=== PATIENT | female | born 1955 | race Native Hawaiian/Other Pacific Islander ===

== ENCOUNTER 2016-11-07 16:10 | Inpatient (IN) ==
--- NOTE | 2016-11-07 16:20 | Emergency Department Note ---
Disposition Clinical Impression: Sepsis, UTI (urinary tract infection) Disposition: Admitted As Inpatient Condition: Good General Adult HPI - General Chief complaint: ED Fever Stated complaint: poss sepsis Time Seen by Provider: 11/07/16 16:14 - Related Data Home Medications Medication Instructions Recorded Confirmed Albuterol Neb [Proventil Neb] 2.5 mg IH QID PRN 03/13/16 11/07/16 Albuterol Sulfate [Albuterol 2 puff IH Q4H PRN 03/13/16 11/07/16 Inhaler] Dextrose [Glucose] 16 gm PO PRN PRN 03/13/16 11/07/16 Insulin ASPART [Novolog Flexpen] 12 unit SQ BIDWM MDD Breakfast & 03/13/1611/07 Lunch Insulin ASPART [Novolog Flexpen] 18 unit SQ QPM MDD Dinner 03/13/16 11/07/16 Insulin Glargine [Lantus] 50 unit SQ DAILY 03/13/16 11/07/16 Isosorbide MONOnitrate (24 HR) 60 mg PO DAILY 03/13/16 11/07/16 [Imdur] Metformin HCl [Glucophage] 1,000 mg PO BID 03/13/16 11/07/16 Metoprolol XL (24 HR) Succ [Toprol 125 mg PO DAILY 03/13/16 11/07/16 Xl] Nitroglycerin [Nitrostat] 0.4 mg SL Q5M PRN 03/13/16 11/07/16 Omeprazole [PriLOSEC] 20 mg PO DAILY 03/13/16 11/07/16 Propylene Glycol/Peg 400 [Systane 1 drop BOTH EYES QID 03/13/16 11/07/16 0.3-0.4% Eye Drops] Triamcinolone Acet 0.1% CRM 1 appl TP BID PRN 03/13/16 11/07/16 [Kenalog] Trospium Chloride 20 mg PO DAILY 03/13/16 11/07/16 Aspirin [Lo-Dose Aspirin EC] 81 mg PO DAILY 03/14/16 11/07/16 Baclofen [Lioresal] 10 mg PO TID 03/14/16 11/07/16 Folic Acid 1 mg PO DAILY 03/14/16 11/07/16 Furosemide [Lasix] 40 mg PO DAILY PRN 03/14/16 11/07/16 Pregabalin [Lyrica] 300 mg PO BID 03/14/16 11/07/16 Quetiapine Fumarate [Seroquel] 200 mg PO HS 03/14/16 11/07/16 Tiotropium [Spiriva] 1 cap IH DAILY 03/14/16 11/07/16 Trazodone HCl 200 mg PO BID 03/14/16 11/07/16 Venlafaxine HCl [Venlafaxine HCl 150 mg PO DAILY 03/14/16 11/07/16 ER] Budesonide/Formoterol 160/4.5 2 puff IH BIDR 11/07/16 11/07/16 [Symbicort 160/4.5] Cyanocobalamin (Vitamin B-12) 1,000 mcg PO DAILY 11/07/16 11/07/16 [Vitamin B12] Saxagliptin HCl [Onglyza] 5 mg PO DAILY 11/07/16 11/07/16 Previous Rx's Medication Instructions Recorded HYDROcodone/Acet 5/325 mg [[place] 1 tab PO Q8HR PRN #20 tablet 03/14/16 5-325 mg] Allergies Allergy/AdvReac Type Severity Reaction Status Date / Time NSAIDS (Non-Steroidal Allergy Unknown See Verified 11/07/16 22:47 Anti-Inflamma Comments atorvastatin AdvReac See Verified 03/13/16 16:57 Comments gemfibrozil AdvReac See Verified 03/13/16 16:57 Comments Sulfa (Sulfonamide AdvReac Vomiting Verified 03/13/16 16:57 Antibiotics) Past Medical History - Past Medical History Medical history: Reports: COPD, diabetes, GERD, hyperlipidemia, hypertension, myocardial infarction, other Surgical history: Reports: cholecystectomy, coronary bypass (CABG) (2013 in [facility] ), tracheostomy Psychiatric history: Reports: anxiety, depression [employer] history: Reports: ectopic - Social History Smoking Status: Current every day smoker Alcohol use: Reports: none Drug use: Reports: none Course Vital Signs Temperature 102.1 F H 11/07/16 16:12 Pulse Rate 93 11/07/16 16:12 Respiratory Rate 24 11/07/16 16:12 Blood Pressure 119/61 11/07/16 16:12 O2 Sat by Pulse Oximetry 100 11/07/16 16:12 Temperature 98.6 F 11/08/16 03:19 Pulse Rate 78 11/08/16 03:19 Respiratory Rate 20 11/08/16 04:11 Blood Pressure 99/53 11/08/16 03:19 O2 Sat by Pulse Oximetry 96 11/08/16 04:11 Oxygen Delivery Oxygen Delivery Trach Mask Medical Decision Making - Lab Data Result diagrams: 11/07/16 16:41 11/08/16 00:25 Lab Results 11/07/16 11/07/16 11/07/16 Range/Units 16:41 16:41 16:41 WBC 12.9 H (4.3-11.1) K/mcL RBC 3.99 (3.82-4.97) M/mcL Hgb 10.3 L (11.5-15.4) g/dL Hct 35.5 (35.3-44.9) % MCV 89.0 (83.0-100.0) fL MCH 25.8 L (28.0-33.3) pg MCHC 29.0 L (31.6-35.5) g/dL RDW 26.0 H (11.5-14.5) % Plt Count 201 (140-400) K/mcL MPV 11.4 (9.4-12.4) fL Immature Gran % 0.6 (0-4) % Seg Neutrophils % 92.7 % Lymphocytes % 2.1 % Monocytes % 4.3 % Eosinophils % 0.2 % Basophils % 0.1 % Neutrophils # 12.0 H (1.6-8.9) K/mcL Lymphocytes # 0.3 L (0.6-4.6) K/mcL Monocytes # 0.6 (0.0-1.3) K/mcL Eosinophils # 0.0 (0.0-0.6) K/mcL Basophils # 0.0 (0.0-0.2) K/mcL Nucleated RBCs/100 WBC 0.2 H (0) /100 WBC Platelet Estimate Normal (Normal) Polychromasia 1+ A (Not Present) Hypochromasia Present A (Not Present) Sodium 137 (136-145) mEq/L Potassium 4.2 (3.5-4.5) mEq/L Chloride 105 (98-109) mEq/L Carbon Dioxide 22 (19-29) mEq/L BUN 24 H (7-20) mg/dL Creatinine 1.31 H (0.57-1.11) mg/dL Est GFR ( Amer) 50 L (> 60) Est GFR (Non-Af Amer) 41 L (> 60) BUN/Creatinine Ratio 18 (6-26) Glucose 335 H (70-99) mg/dL Calculated Osmolality 301 H (280-300) Lactic Acid (0.5-2.2) mmol/L Calcium 8.5 L (8.6-10.8) mg/dL Phosphorus 3.0 (2.3-4.7) mg/dL Magnesium 1.7 (1.6-2.6) mg/dL Total Bilirubin 0.5 (0.2-1.2) mg/dL Direct Bilirubin 0.3 (0.0-0.5) mg/dL Indirect Bilirubin 0.2 (0.0-1.2) mg/dL AST 14 (5-34) Units/L ALT 28 (0-55) Units/L Alkaline Phosphatase 128 H (38-126) Units/L Troponin I 0.00 (0-0.03) ng/mL Serum Total Protein 6.9 (6.0-8.3) g/dL Albumin 3.1 L (3.5-5.0) g/dL Globulin 3.8 H (2.4-3.5) g/dL Albumin/Globulin Ratio 0.8 L (1.1-2.2) Urine Color (Yellow) Urine Clarity (Clear) Urine pH (5.0-8.0) pH Units Ur Specific [place] (1.010-1.025) Urine Protein (Neg-Trace) mg/dL Urine Glucose (UA) (Normal) mg/dL Urine Ketones (Negative) mg/dL Urine Blood (Negative) Urine Nitrite (Negative) Urine Bilirubin (Negative) Urine Urobilinogen (Normal) mg/dL Ur Leukocyte Esterase (Negative) Urine Microscopic RBC (0-3) per hpf Urine Microscopic WBC (0-3) per hpf Ur Squamous Epith Cells (None-Few) per lpf Urine Bacteria (None-Few) per hpf Hyaline Casts (None-Few) per lpf Ur Culture Indicated? (NO) 11/07/16 11/07/16 Range/Units 16:47 16:49 WBC (4.3-11.1) K/mcL RBC (3.82-4.97) M/mcL Hgb (11.5-15.4) g/dL Hct (35.3-44.9) % MCV (83.0-100.0) fL MCH (28.0-33.3) pg MCHC (31.6-35.5) g/dL RDW (11.5-14.5) % Plt Count (140-400) K/mcL MPV (9.4-12.4) fL Immature Gran % (0-4) % Seg Neutrophils % % Lymphocytes % % Monocytes % % Eosinophils % % Basophils % % Neutrophils # (1.6-8.9) K/mcL Lymphocytes # (0.6-4.6) K/mcL Monocytes # (0.0-1.3) K/mcL Eosinophils # (0.0-0.6) K/mcL Basophils # (0.0-0.2) K/mcL Nucleated RBCs/100 WBC (0) /100 WBC Platelet Estimate (Normal) Polychromasia (Not Present) Hypochromasia (Not Present) Sodium (136-145) mEq/L Potassium (3.5-4.5) mEq/L Chloride (98-109) mEq/L Carbon Dioxide (19-29) mEq/L BUN (7-20) mg/dL Creatinine (0.57-1.11) mg/dL Est GFR ( Amer) (> 60) Est GFR (Non-Af Amer) (> 60) BUN/Creatinine Ratio (6-26) Glucose (70-99) mg/dL Calculated Osmolality (280-300) Lactic Acid 2.0 (0.5-2.2) mmol/L Calcium (8.6-10.8) mg/dL Phosphorus (2.3-4.7) mg/dL Magnesium (1.6-2.6) mg/dL Total Bilirubin (0.2-1.2) mg/dL Direct Bilirubin (0.0-0.5) mg/dL Indirect Bilirubin (0.0-1.2) mg/dL AST (5-34) Units/L ALT (0-55) Units/L Alkaline Phosphatase (38-126) Units/L Troponin I (0-0.03) ng/mL Serum Total Protein (6.0-8.3) g/dL Albumin (3.5-5.0) g/dL Globulin (2.4-3.5) g/dL Albumin/Globulin Ratio (1.1-2.2) Urine Color Yellow (Yellow) Urine Clarity Cloudy A (Clear) Urine pH 5.5 (5.0-8.0) pH Units Ur Specific [place] 1.023 (1.010-1.025) Urine Protein 30 H (Neg-Trace) mg/dL Urine Glucose (UA) 500 H (Normal) mg/dL Urine Ketones Negative (Negative) mg/dL Urine Blood Trace H (Negative) Urine Nitrite Positive A (Negative) Urine Bilirubin Negative (Negative) Urine Urobilinogen Normal (Normal) mg/dL Ur Leukocyte Esterase Moderate H (Negative) Urine Microscopic RBC 3-5 H (0-3) per hpf Urine Microscopic WBC 15-30 H (0-3) per hpf Ur Squamous Epith Cells Many H (None-Few) per lpf Urine Bacteria Moderate H (None-Few) per hpf Hyaline Casts Few (None-Few) per lpf Ur Culture Indicated? YES A (NO) Critical Care Time Critical Care Time: Yes Total Critical Care Time: 45 Attestation: Patient presented with hypotension, fever, confusion. She meets criteria for sepsis. UTI the likely culprit. Admitted Attestation Statement - Attestation Attestation: I examined this patient and my medical decision-making was reviewed with the Resident Physician. I agree with the documented findings, disposition and treatment plan as described except to the extent set forth below. [id number] time provided Patient is sent from the [facility] urgent care with concern for sepsis due to confusion , hypotension, fever. Patient has a tracheostomy which is chronic. She is a poor historian. I have reviewed her medication list. We will request the laboratory investigation from the [facility] as it was not initially sent with the patient 17:13: IV fluids not given at 30 mL per KG due to IV fluids are started at the [facility] and the patient is not hypotensive now
[2016-11-07] MEDS ORDERED: Ipratropium/Albuterol Neb 3 ML IH ONE ×2 (16:21→20:32)
[2016-11-07 16:51] LABS: Basophils % 0.1 %; Eosinophils % 0.2 %; Hematocrit 35.5 % (35.3-44.9); Hemoglobin 10.3 g/dL (11.5-15.4); Immature Granulocytes % 0.6 % (0-4); Lymphocytes # 0.3 K/mcL (0.6-4.6); Lymphocytes % 2.1 %; Mean Corpuscular Hemoglobin 25.8 pg (28.0-33.3); Mean Platelet Volume 11.4 fL (9.4-12.4); Monocytes # 0.6 K/mcL (0.0-1.3); Monocytes % 4.3 %; Nucleated Red Blood Cells 0.2 /100 WBC (0); Platelet Count 201 K/mcL (140-400); Red Blood Count 3.99 M/mcL (3.82-4.97); Segmented Neutrophils % 92.7 %
[2016-11-07] MEDS: 0.9 % Sodium Chloride 1,000 ML IVC SCH ×3 (16:53→20:26)
[2016-11-07 16:59] LABS: Bilirubin,Urine Negative (Negative); Blood,Urine Trace (Negative); Clarity,Urine Cloudy (Clear); Color,Urine Yellow (Yellow); Glucose,Urine (UA) 500 mg/dL (Normal); Ketones,Urine Negative (Negative); Leukocyte Esterase,Urine Moderate (Negative); Nitrite,Urine Positive (Negative); PH,Urine 5.5 pH Units (5.0-8.0); Protein,Urine 30 mg/dL (Neg-Trace); Specific Gravity,Urine 1.023 (1.010-1.025); Urobilinogen,Urine Normal (Normal)
[2016-11-07 17:00] LABS: Bacteria,Urine Moderate per hpf (None-Few); Hyaline Casts,Urine Few per lpf (None-Few); Squamous Epithelial Cell,Urine Many per lpf (None-Few); WBC,Urine 15-30 per hpf (0-3)
[2016-11-07 17:04] LABS: Albumin 3.1 g/dL (3.5-5.0); Albumin/Globulin Ratio 0.8 (1.1-2.2); Bilirubin,Direct 0.3 mg/dL (0.0-0.5); Bilirubin,Indirect 0.2 mg/dL (0.0-1.2); Bilirubin,Total 0.5 mg/dL (0.2-1.2); Calcium 8.5 mg/dL (8.6-10.8); Globulin 3.8 g/dL (2.4-3.5); Magnesium 1.7 mg/dL (1.6-2.6); Potassium 4.2 mEq/L (3.5-4.5); Total Protein 6.9 g/dL (6.0-8.3)
--- NOTE | 2016-11-07 17:07 | Emergency Department Note ---
Disposition Clinical Impression: Sepsis Qualifiers: Sepsis type: sepsis due to unspecified organism Qualified Code(s): A41.9 - Sepsis, unspecified organism UTI (urinary tract infection) Qualifiers: Urinary tract infection type: acute cystitis Hematuria presence: without hematuria Qualified Code(s): N30.00 - Acute cystitis without hematuria Disposition: Admitted As Inpatient Condition: Good [facility]errals: [facility] [Non-Partnered Physician] - Forms: ED Satisfaction Letter Time of Disposition: 18:02 Abdominal Pain HPI - General Chief Complaint: ED Abdominal Pain Stated Complaint: poss sepsis Time Seen by Provider: 11/07/16 16:14 Nursing Notes Reviewed: Yes Vital Signs Reviewed: Yes - History of Present Illness HPI Narrative: Patient sent from the [place] for hypotension and tachycardia as well as altered mental status, possible sepsis. She is a trach patient there. They have [place] the patient on Zosyn. They did a chest x-ray and basic lab workup. Her chest x-ray was normal. They have also started her on 1 L of fluids. Pain Scale: 8 - Related Data Home Medications Medication Instructions Recorded Confirmed Albuterol Neb [Proventil Neb] 2.5 mg IH QID PRN 03/13/16 03/13/16 Albuterol Sulfate [Albuterol 2 puff IH Q4H PRN 03/13/16 03/13/16 Inhaler] Dextrose [Glucose] 16 gm PO PRN PRN 03/13/16 03/13/16 Insulin ASPART [Novolog Flexpen] 12 unit SQ BIDWM MDD Breakfast & 03/13/1603/13 Lunch Insulin ASPART [Novolog Flexpen] 18 unit SQ QPM MDD Dinner 03/13/16 03/13/16 Insulin Glargine [Lantus] 50 unit SQ DAILY 03/13/16 03/13/16 Isosorbide MONOnitrate (24 HR) 60 mg PO DAILY 03/13/16 03/13/16 [Imdur] Metformin HCl [Glucophage] 1,000 mg PO BID 03/13/16 03/13/16 Metoprolol XL (24 HR) Succ [Toprol 125 mg PO DAILY 03/13/16 03/13/16 Xl] Nitroglycerin [Nitrostat] 0.4 mg SL Q5M PRN 03/13/16 03/13/16 Omeprazole [PriLOSEC] 20 mg PO DAILY 03/13/16 03/13/16 Propylene Glycol/Peg 400 [Systane 1 drop BOTH EYES QID 03/13/16 03/13/16 0.3-0.4% Eye Drops] Triamcinolone Acet 0.1% CRM 1 appl TP BID PRN 03/13/16 03/13/16 [Kenalog] Trospium Chloride 20 mg PO DAILY 03/13/16 03/13/16 Aspirin [Lo-Dose Aspirin EC] 81 mg PO DAILY 03/14/16 03/14/16 Baclofen [Lioresal] 10 mg PO TID 03/14/16 03/14/16 Folic Acid 1 mg PO DAILY 03/14/16 03/14/16 Furosemide [Lasix] 40 mg PO DAILY PRN 03/14/16 03/14/16 Pregabalin [Lyrica] 300 mg PO BID 03/14/16 03/14/16 Quetiapine Fumarate [Seroquel] 200 mg PO HS 03/14/16 03/14/16 Tiotropium [Spiriva] 18 mcg IH DAILY 03/14/16 03/14/16 Trazodone HCl 100 mg PO HS 03/14/16 03/14/16 Trospium Chloride 20 mg PO DAILY 03/14/16 03/14/16 Venlafaxine HCl [Venlafaxine HCl 150 mg PO DAILY 03/14/16 03/14/16 ER] Previous Rx's Medication Instructions Recorded HYDROcodone/Acet 5/325 mg [[place] 1 tab PO Q8HR PRN #20 tablet 03/14/16 5-325 mg] Allergies Allergy/AdvReac Type Severity Reaction Status Date / Time atorvastatin AdvReac See Verified 03/13/16 16:57 Comments gemfibrozil AdvReac See Verified 03/13/16 16:57 Comments Sulfa (Sulfonamide AdvReac Vomiting Verified 03/13/16 16:57 Antibiotics) Limitations: ROS unobtainable due to patients medical condition Abdominal Pain PMH - Past Medical History Medical history: Reports: COPD, diabetes, GERD, hyperlipidemia, hypertension, myocardial infarction, other Female Surgical History: Reports: coronary bypass (CABG), other [employer] history: Reports: ectopic Psychiatric history: Reports: anxiety, depression - Social History Smoking status: Current every day smoker Alcohol use: Reports: none Drug use: Reports: none Physical Exam - General General appearance: alert, in no apparent distress, other (Confused. Has a foul urine odor about her.) - Head Head exam: atraumatic, normocephalic, normal inspection - Eye Eye exam: Present: normal appearance, PERRL, EOMI. Absent: scleral icterus - ENT ENT exam: normal exam, normal oropharynx, mucous membranes moist - Neck Neck exam: Present: normal inspection, full ROM, trachea midline, other (Trach present.). Absent: tenderness, lymphadenopathy - Chest Chest inspection: Present: normal inspection, symmetric chest wall rise - Respiratory Respiratory exam: Present: wheezes (Diffusely). Absent: respiratory distress, accessory muscle use - Cardiovascular Cardiovascular exam: Present: normal rhythm, tachycardia, normal heart sounds - Abdominal Exam Abdominal exam: Present: soft, Non-Tender, normal bowel sounds. Absent: tenderness, distention, guarding, rebound, rigidity, organomegaly - Extremities Exam Extremities exam: Present: normal inspection, full ROM, normal capillary refill. Absent: tenderness, pedal edema - Back Exam Back exam: Present: normal inspection, full ROM. Absent: tenderness, CVA tenderness (R), CVA tenderness (L) - Neurological Exam Neurological exam: Present: alert, oriented X3 - Psychiatric Psychiatric exam: Present: normal affect, normal mood - Skin Skin exam: Present: warm, dry, intact, normal color. Absent: rash Course Course Narrative: Patient sent from the [place] for altered mental status hypotension possible sepsis. She is febrile and tachycardic. They placed the patient on Zosyn. She has had one dose of this. They also gave the patient 1 L of fluids. Patient is tachycardic he sepsis criteria does have an altered level of consciousness. She is a foul urine smell about her. She does know where she is but is unable to tell me any other information. She has wheezing diffusely. Her abdomen is soft and nontender on exam. Her heart sounds are normal. Pupils are equal and reactive. We will get a basic lab workup. Her chest x-ray from the [place] was normal. We will give the patient a total of 2500 mL of fluid. She has no signs of edema to her extremities. We will likely admit patient to the hospital. - Reevaluation(s) Reevaluation #1: Patient has urosepsis. She has been started on Zosyn. We will admit to hospital. Time: 17:38 - Consultations Consultation #1: Dr Flores accepted the patient stable condition. Time: 17:36 Vital Signs Temperature 102.1 F H 11/07/16 16:12 Pulse Rate 93 11/07/16 16:12 Respiratory Rate 24 11/07/16 16:12 Blood Pressure 119/61 11/07/16 16:12 O2 Sat by Pulse Oximetry 100 11/07/16 16:12 Temperature 102.1 F H 11/07/16 16:12 Pulse Rate 111 11/07/16 17:11 Respiratory Rate 26 11/07/16 17:11 Blood Pressure 160/62 11/07/16 17:11 O2 Sat by Pulse Oximetry 98 11/07/16 17:11 Oxygen Delivery Oxygen Delivery Trach Mask Abdominal Pain - Medical Records Medical records reviewed: Yes I reviewed the patient's medical records. - Lab Data Lab results reviewed: Yes I reviewed the patient's lab results. Result diagrams: 11/07/16 16:41 11/07/16 16:41 Lab Results 11/07/16 11/07/16 11/07/16 Range/Units 16:41 16:41 16:41 WBC 12.9 H (4.3-11.1) K/mcL RBC 3.99 (3.82-4.97) M/mcL Hgb 10.3 L (11.5-15.4) g/dL Hct 35.5 (35.3-44.9) % MCV 89.0 (83.0-100.0) fL MCH 25.8 L (28.0-33.3) pg MCHC 29.0 L (31.6-35.5) g/dL RDW 26.0 H (11.5-14.5) % Plt Count 201 (140-400) K/mcL MPV 11.4 (9.4-12.4) fL Immature Gran % 0.6 (0-4) % Seg Neutrophils % 92.7 % Lymphocytes % 2.1 % Monocytes % 4.3 % Eosinophils % 0.2 % Basophils % 0.1 % Neutrophils # 12.0 H (1.6-8.9) K/mcL Lymphocytes # 0.3 L (0.6-4.6) K/mcL Monocytes # 0.6 (0.0-1.3) K/mcL Eosinophils # 0.0 (0.0-0.6) K/mcL Basophils # 0.0 (0.0-0.2) K/mcL Nucleated RBCs/100 WBC 0.2 H (0) /100 WBC Platelet Estimate Normal (Normal) Polychromasia 1+ A (Not Present) Hypochromasia Present A (Not Present) Sodium 137 (136-145) mEq/L Potassium 4.2 (3.5-4.5) mEq/L Chloride 105 (98-109) mEq/L Carbon Dioxide 22 (19-29) mEq/L BUN 24 H (7-20) mg/dL Creatinine 1.31 H (0.57-1.11) mg/dL Est GFR ( Amer) 50 L (> 60) Est GFR (Non-Af Amer) 41 L (> 60) BUN/Creatinine Ratio 18 (6-26) Glucose 335 H (70-99) mg/dL Calculated Osmolality 301 H (280-300) Lactic Acid (0.5-2.2) mmol/L Calcium 8.5 L (8.6-10.8) mg/dL Phosphorus 3.0 (2.3-4.7) mg/dL Magnesium 1.7 (1.6-2.6) mg/dL Total Bilirubin 0.5 (0.2-1.2) mg/dL Direct Bilirubin 0.3 (0.0-0.5) mg/dL Indirect Bilirubin 0.2 (0.0-1.2) mg/dL AST 14 (5-34) Units/L ALT 28 (0-55) Units/L Alkaline Phosphatase 128 H (38-126) Units/L Troponin I 0.00 (0-0.03) ng/mL Serum Total Protein 6.9 (6.0-8.3) g/dL Albumin 3.1 L (3.5-5.0) g/dL Globulin 3.8 H (2.4-3.5) g/dL Albumin/Globulin Ratio 0.8 L (1.1-2.2) Urine Color (Yellow) Urine Clarity (Clear) Urine pH (5.0-8.0) pH Units Ur Specific [place] (1.010-1.025) Urine Protein (Neg-Trace) mg/dL Urine Glucose (UA) (Normal) mg/dL Urine Ketones (Negative) mg/dL Urine Blood (Negative) Urine Nitrite (Negative) Urine Bilirubin (Negative) Urine Urobilinogen (Normal) mg/dL Ur Leukocyte Esterase (Negative) Urine Microscopic RBC (0-3) per hpf Urine Microscopic WBC (0-3) per hpf Ur Squamous Epith Cells (None-Few) per lpf Urine Bacteria (None-Few) per hpf Hyaline Casts (None-Few) per lpf Ur Culture Indicated? (NO) 11/07/16 11/07/16 Range/Units 16:47 16:49 WBC (4.3-11.1) K/mcL RBC (3.82-4.97) M/mcL Hgb (11.5-15.4) g/dL Hct (35.3-44.9) % MCV (83.0-100.0) fL MCH (28.0-33.3) pg MCHC (31.6-35.5) g/dL RDW (11.5-14.5) % Plt Count (140-400) K/mcL MPV (9.4-12.4) fL Immature Gran % (0-4) % Seg Neutrophils % % Lymphocytes % % Monocytes % % Eosinophils % % Basophils % % Neutrophils # (1.6-8.9) K/mcL Lymphocytes # (0.6-4.6) K/mcL Monocytes # (0.0-1.3) K/mcL Eosinophils # (0.0-0.6) K/mcL Basophils # (0.0-0.2) K/mcL Nucleated RBCs/100 WBC (0) /100 WBC Platelet Estimate (Normal) Polychromasia (Not Present) Hypochromasia (Not Present) Sodium (136-145) mEq/L Potassium (3.5-4.5) mEq/L Chloride (98-109) mEq/L Carbon Dioxide (19-29) mEq/L BUN (7-20) mg/dL Creatinine (0.57-1.11) mg/dL Est GFR ( Amer) (> 60) Est GFR (Non-Af Amer) (> 60) BUN/Creatinine Ratio (6-26) Glucose (70-99) mg/dL Calculated Osmolality (280-300) Lactic Acid 2.0 (0.5-2.2) mmol/L Calcium (8.6-10.8) mg/dL Phosphorus (2.3-4.7) mg/dL Magnesium (1.6-2.6) mg/dL Total Bilirubin (0.2-1.2) mg/dL Direct Bilirubin (0.0-0.5) mg/dL Indirect Bilirubin (0.0-1.2) mg/dL AST (5-34) Units/L ALT (0-55) Units/L Alkaline Phosphatase (38-126) Units/L Troponin I (0-0.03) ng/mL Serum Total Protein (6.0-8.3) g/dL Albumin (3.5-5.0) g/dL Globulin (2.4-3.5) g/dL Albumin/Globulin Ratio (1.1-2.2) Urine Color Yellow (Yellow) Urine Clarity Cloudy A (Clear) Urine pH 5.5 (5.0-8.0) pH Units Ur Specific [place] 1.023 (1.010-1.025) Urine Protein 30 H (Neg-Trace) mg/dL Urine Glucose (UA) 500 H (Normal) mg/dL Urine Ketones Negative (Negative) mg/dL Urine Blood Trace H (Negative) Urine Nitrite Positive A (Negative) Urine Bilirubin Negative (Negative) Urine Urobilinogen Normal (Normal) mg/dL Ur Leukocyte Esterase Moderate H (Negative) Urine Microscopic RBC 3-5 H (0-3) per hpf Urine Microscopic WBC 15-30 H (0-3) per hpf Ur Squamous Epith Cells Many H (None-Few) per lpf Urine Bacteria Moderate H (None-Few) per hpf Hyaline Casts Few (None-Few) per lpf Ur Culture Indicated? YES A (NO) - Radiology Data Radiology results reviewed: Yes I reviewed the patient's radiology results. - EKG Data EKG attestation: Yes I reviewed and interpreted this EKG. EKG results narrative: Normal sinus rhythm at a rate of 99. DC interval is 187. QRS duration is 90. QT is 312. QTC is 368. No signs of acute ischemia. No significant change from previous EKG dated 03/13/2016.
[2016-11-07] MEDS ORDERED: Acetaminophen 650 MG RECTAL SUPP RC ONE ×2 (17:08→20:44)
[2016-11-07 17:18] LABS: Hypochromasia Present (Not Present); Platelet Estimate Normal (Normal); Polychromasia 1+ (Not Present)
[2016-11-07] MEDS ORDERED: Naloxone 0.4 MG/ML INJ IVP PRN (18:29)
[2016-11-07] MEDS ORDERED: *HR* Dextrose 50 % in Water (Syg) 50 ML SYRINGE IVP PRN (18:29)
[2016-11-07] MEDS ORDERED: D5% in Water 1,000 ML IVC PRN (18:29)
[2016-11-07] MEDS ORDERED: Dextrose Gel 15 GM PO PRN ×2 (18:29)
[2016-11-07] MEDS ORDERED: Acetaminophen 325 MG TABLET PO PRN (18:29)
[2016-11-07] MEDS ORDERED: 0.9 % Sodium Chloride 1,000 ML IVC SCH (18:30)
--- NOTE | 2016-11-07 18:39 | Event Note ---
Date of Encounter: 11/07/16 Time of Encounter: 18:35 1. Acute metabolic encephalopathy secondary to severe sepsis possibly from urinary tract infection, consider other sources, the patient has history of MRSA Chest x-ray at the [facility] did not show any acute cardiopulmonary disease but the patient is extremely sick and unable to answer any questions Order a CT scan of the chest as the patient has a trach Vancomycin IV, cefepime and Levaquin to be started, May de-escalate antibiotics if the patient's condition improves Check lactic acid Blood cultures and sputum cultures, IV fluids, oxygen therapy Send urine culture 2. History of severe COPD status post tracheostomy, consider possible acute exacerbation Add Solu-Medrol IV 3. Diabetes type 2 insulin-dependent, use insulin sliding scale only for the moment 4. Depression, resume venlafaxine 1 possible 5. Hypertension, may use hydralazine IV as needed 6. Tobacco use Protonix IV for GI prophylaxis and subcutaneous heparin for DVT prophylaxis. The patient will be admitted as inpatient, expected to stay more than 2 minutes. Full code. Time spent on this admission 40 minutes
[2016-11-07] MEDS ORDERED: Nitroglycerin 0.4 MG TAB.SUBL SL PRN (18:53)
[2016-11-07] MEDS ORDERED: *HR* HYDROcodone/Acet 5/325 mg TABLET PO PRN (18:53)
[2016-11-07] MEDS ORDERED: Furosemide 40 MG TABLET PO PRN (18:53)
[2016-11-07] MEDS ORDERED: Albuterol 2.5 MG/3 ML NEBULIZER IH PRN (18:53)
[2016-11-07] MEDS ORDERED: Cefepime HCl 1,000 MG in D5% in Water (Mini-Bag+) 100 ML IVPB SCH (19:00)
[2016-11-07] MEDS ORDERED: Vancomycin 1,250 MG in D5% in Water 250 ML IVPB SCH ×2 (19:00)
--- NOTE | 2016-11-07 19:17 | Internal Med History&Physical ---
<Sudarshan Tang J - Last Filed: 11/07/16 19:28> Date of Encounter: 11/07/16 Time of Encounter: 19:07 Assessment and Plan (1) Sepsis Current visit: Yes Status: Acute Admitted from [facility] with AMS, UTI, initial hypotension, fever, and tachycardia. Likely acure metabolic encephalopathy secondary to UTI sepsis. H/O MRSA respiratory infection and could also be a likely source. Plan is as follows 1 Start Levaquin for UTI, Vancomycin and Cefepime for prophylaxis for respiratory infection. 2 Send sputum cultures form trach. Urine cultures pending, plan is to narrow or deescalate ATB based on culture for both sputum and urine. Blood cultures pending. [address] chest 4 CBC, Lactic acid LFT BMP and ABG ordered 5 IVF started and will titrate if needed. Already received fluid challenge in the ED Qualifiers: Sepsis type: sepsis due to unspecified organism Qualified Code(s): A41.9 - Sepsis, unspecified organism (2) UTI (urinary tract infection) Current visit: Yes Status: Acute UTI of unspecified type. Arrived in ED from [facility] with tachycardia, hypotension, fever and AMS. UA indicated UTI. Placed on IV levaquin. Qualifiers: Urinary tract infection type: acute cystitis Hematuria presence: without hematuria Qualified Code(s): N30.00 - Acute cystitis without hematuria (3) Chronic respiratory failure Current visit: Yes Status: Chronic H/O chronic respiratory failure requiring a trach and continuous O2 support. Continue O2 support and titrate as needed. ABG ordered Qualifiers: Respiratory failure complication: unspecified whether with hypoxia or hypercapnia Qualified Code(s): J96.10 - Chronic respiratory failure, unspecified whether with hypoxia or hypercapnia (4) COPD exacerbation Current visit: Yes Status: Acute Diminished breath sounds A&P throughout with fine rales in the posterior bases. Remain on oxygen therapy with orders to tirate as needed. Orders for ABG and solumedrol. (5) HTN (hypertension) Current visit: Yes Status: Acute Chronic h/o HTN. Was initially hypotensive upon arrival from the ED. After fluid challenge she is now hypertensive. Will continue BB at home dose. Titrate BB as needed. May consider d/c if hypotension resumes. Qualifiers: Hypertension type: essential hypertension Qualified Code(s): I10 - Essential (primary) hypertension (6) Diabetes mellitus Current visit: No Status: Chronic H/O IDDM. Initiate accucheck Q6 hours, make NPO for now, initiate low SSI cov. and discontinue Basal insulin. Qualifiers: Diabetes mellitus type: type 2 Diabetes mellitus complication status: with unspecified complications Diabetes mellitus ferry terminal supervisor insulin use: with detention use Qualified Code(s): E11.8 - Type 2 diabetes mellitus with unspecified complications; Z79.4 - long term care social worker (current) use of insulin (7) DVT prophylaxis Current visit: Yes Status: Acute Will be strict bedrest as of now. Place on [facility] heparin for DVT prophylaxis Internal Medicine - H&P: HPI Chief complaint: Altered mental status likely d/t acute metabolic encephalopath , sepsis, UTI Admitted From: Long-term Nursing Facility Plans for Post Hospital Care: Transfer Intermediate Care History of present illness: Ms. Sood is a 61 year old female with a PMH of Chronic respiratory failure requiring a trach, COPD IDDM, GERD, HLD, HTN, [place] CABG, anxiety and depression. Information obtained from the [facility] chart and ED physician as the patient is confused and disoriented. She is a long-term care resident at the [facility] and was transferred to [facility] on 11-07-16 for AMS, confusion, abdominal pain , UTI and strong suspicion of sepsis. At the [facility] she received Zosyn and BC were obtained. [facility] chest x-Ray was without any acute abnormalities. Basic lab work- up completed in the ED as well as UA/UC and BC and she was treated as per the sepsis protocol. Likely suffering form acute metabolic encephalopathy secondary to septic UTI, but d/t h/o MRSA respiratory infection further eval is needed. She is being admitted for further workup and evaluation. Past Med Surg Social Fam HX - Past Medical History Medical history: COPD, diabetes, GERD, hyperlipidemia, hypertension, myocardial infarction, other Psychiatric history: anxiety, depression - Past Surgical History Surgical History: cholecystectomy, coronary bypass (CABG) (2013 in [facility] ), tracheostomy - Social History Smoking Status: Current every day smoker Smokeless Tobacco Status: No Alcohol use: none Drug use: none - Family History Father Hx Family Cardiac Disorders: Yes (Congestive heart failure hypertension) Hx Family Endocrine Disorder: Yes (Diabetes) Mother Hx Family Cardiac Disorders: Yes (Hypertension) Hx Family Endocrine Disorder: Yes (Diabetes) Brother Hx Family Cardiac Disorders: Yes (Hypertension heart disease) Hx Family Endocrine Disorder: Yes (Diabetes) - Additional Family History Additional family history: unable to obtain d/t alterations in mental status Internal Medicine - H&P: Meds Albuterol Neb [Proventil Neb] 2.5 mg IH QID PRN 03/13/16 [History] Albuterol Sulfate [Albuterol Inhaler] 2 puff IH Q4H PRN 03/13/16 [History] Dextrose [Glucose] 16 gm PO PRN PRN 03/13/16 [History] Insulin ASPART [Novolog Flexpen] 12 unit SQ BIDWM MDD Breakfast & Lunch [History] Insulin ASPART [Novolog Flexpen] 18 unit SQ QPM MDD Dinner 03/13/16 [History] Insulin Glargine [Lantus] 25 unit SQ DAILY 03/13/16 [History] Isosorbide MONOnitrate (24 HR) [Imdur] 60 mg PO DAILY 03/13/16 [History] Metformin HCl [Glucophage] 1,000 mg PO BID 03/13/16 [History] Metoprolol XL (24 HR) Succ [Toprol Xl] 125 mg PO DAILY 03/13/16 [History] Nitroglycerin [Nitrostat] 0.4 mg SL Q5M PRN 03/13/16 [History] Omeprazole [PriLOSEC] 20 mg PO DAILY 03/13/16 [History] Propylene Glycol/Peg 400 [Systane 0.3-0.4% Eye Drops] 1 drop BOTH EYES QID 03/13 [History] Triamcinolone Acet 0.1% CRM [Kenalog] 1 appl TP BID PRN 03/13/16 [History] Trospium Chloride 20 mg PO DAILY 03/13/16 [History] Aspirin [Lo-Dose Aspirin EC] 81 mg PO DAILY 03/14/16 [History] Baclofen [Lioresal] 10 mg PO TID 03/14/16 [History] Folic Acid 1 mg PO DAILY 03/14/16 [History] Furosemide [Lasix] 40 mg PO DAILY PRN 03/14/16 [History] HYDROcodone/Acet 5/325 mg [Nolan 5-325 mg] 1 tab PO Q8HR PRN #20 tablet [Rx] Pregabalin [Lyrica] 300 mg PO BID 03/14/16 [History] Quetiapine Fumarate [Seroquel] 200 mg PO HS 03/14/16 [History] Tiotropium [Spiriva] 1 cap IH DAILY 03/14/16 [History] Trazodone HCl 200 mg PO BID 03/14/16 [History] Venlafaxine HCl [Venlafaxine HCl ER] 150 mg PO DAILY 03/14/16 [History] Budesonide/Formoterol 160/4.5 [Symbicort 160/4.5] 2 puff IH BIDR 11/07/16 [ History] Cyanocobalamin (Vitamin B-12) [Vitamin B12] 1,000 mcg PO DAILY 11/07/16 [History ] Saxagliptin HCl [Onglyza] 5 mg PO DAILY 11/07/16 [History] Insulin Glargine [Lantus] 20 units SQ HS 11/08/16 [History] Allergies NSAIDS (Non-Steroidal Anti-Inflamma Allergy (Unknown, Verified 11/07/16 22:47) See Comments Reaction unknown atorvastatin Adverse Reaction (Verified 03/13/16 16:57) See Comments "legs go weak" gemfibrozil Adverse Reaction (Verified 03/13/16 16:57) See Comments "legs go weak" Sulfa (Sulfonamide Antibiotics) Adverse Reaction (Verified 03/13/16 16:57) Vomiting ROS unobtainable: due to mental status All Systems PM: A 10-system review of systems was performed and is negative for pertinent findings except as documented above in the HPI. - Constitutional Vitals: Temp Pulse Resp BP Pulse Ox 102.1 F H 129 24 114/60 94 11/07/16 16:12 11/07/16 18:02 11/07/16 18:35 11/07/16 18:35 11/07/16 18:02 General appearance: Present: obese - Head Head exam: Present: atraumatic, normocephalic - Eye Eye exam: Present: PERRL, conjuntiva pink, sclera anicteric Pupils: Present: PERRL - Neck Neck exam general surgery: Present: supple, trachea midline. Absent: lymphadenopathy - Respiratory Respiratory exam: Present: decreased breath sounds, rales. Absent: accessory muscle use, rhonchi, wheezes Additional comments: rales in the posterior bases - Cardiovascular Cardiovascular exam: Present: +S1, +S2, tachycardia. Absent: diastolic murmur, gallop, rubs, systolic murmur - GI/Abdominal GI/Abdominal exam: Present: normal bowel sounds, soft, no peritoneal signs. Absent: distended, tenderness Additional comments: round and nontender - Extremities Exam Extremities exam: Present: warm, radial pulses palpable and symetrical. Absent : calf tenderness, cyanotic, pedal edema - Neurological Exam Neurological exam: Present: altered. Absent: facial droop, speech deficit - Expanded Neurological Exam Coma Scale Eye Opening: To Voice Coma Scale Motor Response: Obeys Commands (localized to tactile stimulus but remains in a lethargic state) Coma Scale Verbal Response: Confused Coma Scale Total: 13 - Skin Skin exam: Present: dry, intact Internal Med - H&P Results - Labs CBC & Chem 7: 11/07/16 16:41 11/07/16 16:41 - ABG Interpretation Additional comments: Prior ABG from [facility] was WNL. Ordering an addition ABG for further evaluation as the patient remains lethargic and has a h/o respiratory failure. - EKG Data -: EKG Interpreted by Myself EKG shows normal: sinus rhythm Rate: tachycardia - EKG Data Prior EKG available for review: yes When compared to previous EKG: there are significant changes <Petros Serrano H - Last Filed: 11/08/16 21:32> Date of Encounter: 11/08/16 Internal Medicine - H&P: HPI History of present illness: Ms. Sood is a 61 year old female All Systems PM: A 10-system review of systems was performed and is negative for pertinent findings except as documented above in the HPI. - Constitutional Vitals: Temp Pulse Resp BP Pulse Ox 98.2 F 78 20 117/64 100 11/08/16 20:00 11/08/16 20:00 11/08/16 20:00 11/08/16 20:00 11/08/16 20:00 Internal Med - H&P Results - Labs CBC & Chem 7: 11/07/16 16:41 11/08/16 00:25 Labs: BMP 11/08/16 00:25 Sodium 139 Potassium 3.6 Chloride 108 Carbon Dioxide 19 BUN 23 H Creatinine 1.31 H Glucose 449 H Calcium 7.7 L Cardiac Enzymes 11/08/16 11/08/16 Range/Units 00:25 09:42 Troponin I 0.05 H* 0.02 (0-0.03) ng/mL Liver Function 11/08/16 Range/Units 00:25 Total Bilirubin 0.4 (0.2-1.2) mg/dL AST 20 (5-34) Units/L ALT 26 (0-55) Units/L Alkaline Phosphatase 117 (38-126) Units/L Albumin 2.3 L D (3.5-5.0) g/dL - ABG Interpretation ABG results: 11/07/16 20:07 ABG pH 7.39 ABG pCO2 37 ABG pO2 66 L ABG HCO3 22.4 ABG Total CO2 23.5 ABG O2 Saturation 92 L ABG Base Excess -2.3 L - Attending Attestation 1. Acute metabolic encephalopathy secondary to Acute on chronic hypoxia respiratory failure with severe sepsis possibly from urinary tract infection, consider other sources, the patient has history of MRSA Chest x-ray at the [facility] did not show any acute cardiopulmonary disease but the patient is extremely sick and unable to answer any questions Order a CT scan of the chest as the patient has a trach Vancomycin IV, cefepime and Levaquin to be started, May de-escalate antibiotics if the patient's condition improves Check lactic acid Blood cultures and sputum cultures, IV fluids, oxygen therapy Send urine culture Order ABG CT scan of the head ordered 2. History of severe COPD status post tracheostomy, consider possible acute exacerbation Add Solu-Medrol IV 3. Diabetes type 2 insulin-dependent, use insulin sliding scale only for the moment 4. Depression, resume venlafaxine when possible 5. Hypertension, may use hydralazine IV as needed 6. Tobacco use Protonix IV for GI prophylaxis and subcutaneous heparin for DVT prophylaxis. The patient will be admitted as inpatient, expected to stay more than 2 minutes. Full code. Time spent on this admission 40 minutes For this encounter, I have reviewed the ACCOUNTS RECEIVABLE EXECUTIVE or PA documentation, treatment plan, and medical decision making; and I have had face to face time with this patient.
[2016-11-07] MEDS ORDERED: Levofloxacin 750 MG/150 ML 750 MG/150 ML BAG IVPB SCH (20:00)
[2016-11-07] MEDS: Ipratropium/Albuterol Neb 3 ML IH SCH ×2 (20:12→22:51)
[2016-11-07 20:17] LABS: ABG Base Excess -2.3 mEq/L (-2.0 to 3.0); ABG HCO3 22.4 mEQ/L (21-27); ABG Oxygen Saturation 92 % (95-98); ABG PCO2 37 mmHg (35-45); ABG PH 7.39 pH Units (7.32-7.45); ABG PO2 66 mmHg (85-104); ABG TCO2 23.5 mEq/L (20-26); Blood Gas FiO2 28 %
[2016-11-07] MEDS: MethylPREDNISolone 40 MG/ML VIAL IVP SCH (20:27)
[2016-11-07] MEDS ORDERED: Furosemide 40 MG/4 ML VIAL IVP ONE (20:29)
[2016-11-07] MEDS ORDERED: Baclofen 10 MG TABLET PO SCH (21:00)
[2016-11-07] MEDS: Pregabalin 75 MG CAPSULE PO SCH (22:32)
[2016-11-07] MEDS: Cefepime HCl 1,000 MG in D5% in Water (Mini-Bag+) 100 ML IVPB SCH (22:54)
[2016-11-07] MEDS: Insulin LISPRO 300 UNITS/3 ML VIAL SQ SCH (23:31)
[2016-11-08 02:10] LABS: Albumin/Globulin Ratio 0.7 (1.1-2.2); Bilirubin,Total 0.4 mg/dL (0.2-1.2); Calcium 7.7 mg/dL (8.6-10.8); Globulin 3.2 g/dL (2.4-3.5); Potassium 3.6 mEq/L (3.5-4.5)
[2016-11-08 02:23] LABS: Albumin 2.3 g/dL (3.5-5.0); Total Protein 5.5 g/dL (6.0-8.3)
[2016-11-08] MEDS: Ipratropium/Albuterol Neb 3 ML IH SCH ×4 (04:11→22:04)
[2016-11-08] MEDS: MethylPREDNISolone 40 MG/ML VIAL IVP SCH ×3 (04:21→18:37)
[2016-11-08] MEDS: Insulin LISPRO 300 UNITS/3 ML VIAL SQ SCH ×4 (05:50→20:35)
[2016-11-08] MEDS: *HR* Heparin 5,000 UNIT/ML VIAL SQ SCH ×2 (05:50→17:22)
[2016-11-08] MEDS ORDERED: *HR* Enoxaparin 40 MG/0.4 ML SYRINGE SQ SCH (06:00)
[2016-11-08 09:21] LABS: Acinetobacter baumannii by PCR Not Detected (Not Detect); Candida albicans by PCR Not Detected (Not Detect); Candida glabrata by PCR Not Detected (Not Detect); Candida krusei by PCR Not Detected (Not Detect); Candida parapsilosis by PCR Not Detected (Not Detect); Candida tropicalis by PCR Not Detected (Not Detect); Enterococcus by PCR Not Detected (Not Detect); Escherichia coli by PCR ***DETECTED*** (Not Detect); Klebsiella oxytoca by PCR Not Detected (Not Detect); Klebsiella pneumoniae by PCR Not Detected (Not Detect); Pseudomonas aeruginosa by PCR Not Detected (Not Detect); Serratia marcescens by PCR Not Detected (Not Detect); Staphylococcus aureus by PCR Not Detected (Not Detect); Streptococcus agalactiae(B)PCR Not Detected (Not Detect); Streptococcus by PCR Not Detected (Not Detect); Streptococcus pneumoniae PCR Not Detected (Not Detect); Streptococcus pyogenes (A) PCR Not Detected (Not Detect); blaKPC Carbapenem-Resist Gene Not Detected (Not Detect)
[2016-11-08] MEDS: Tiotropium 18 MCG inhalation IH SCH (09:21)
[2016-11-08] MEDS: Pregabalin 75 MG CAPSULE PO SCH ×2 (09:22→20:35)
[2016-11-08] MEDS: Isosorbide MONOnitrate (24 HR) 60 MG TAB.ER.24H PO SCH (09:22)
[2016-11-08] MEDS: Venlafaxine XR (24 HR) 150 MG CAP.ER.24H PO SCH (09:22)
[2016-11-08] MEDS: Aspirin Enteric Coated 81 MG Tablet PO SCH (09:22)
[2016-11-08] MEDS: Metoprolol XL (24 HR) Succ 50 MG TAB.ER.24H PO SCH (09:22)
[2016-11-08] MEDS: Pantoprazole 40 MG VIAL IVP SCH (09:23)
[2016-11-08] MEDS: 0.9 % Sodium Chloride 1,000 ML IVC SCH (09:23)
--- NOTE | 2016-11-08 11:46 | Internal Med Progress Note ---
Date of Encounter: 11/09/16 Time of Encounter: 11:44 - Assessment and plan (1) Sepsis Current Visit: Yes Status: Acute Qualifiers: Sepsis type: sepsis due to unspecified organism Qualified Code(s): A41.9 - Sepsis, unspecified organism (2) UTI (urinary tract infection) Current Visit: Yes Status: Acute Qualifiers: Urinary tract infection type: acute cystitis Hematuria presence: without hematuria Qualified Code(s): N30.00 - Acute cystitis without hematuria (3) Diabetes mellitus Current Visit: No Status: Chronic Qualifiers: Diabetes mellitus type: type 2 Diabetes mellitus complication status: with unspecified complications Diabetes mellitus half-way insulin use: with watermelon inspector use Qualified Code(s): E11.8 - Type 2 diabetes mellitus with unspecified complications; Z79.4 - terminal clerk (current) use of insulin (4) COPD exacerbation Current Visit: Yes Status: Acute (5) Hx of CABG Current Visit: No Status: Acute (6) DVT prophylaxis Current Visit: Yes Status: Acute - Constitutional Vitals: Temp Pulse Resp BP Pulse Ox 98.1 F 81 18 105/58 91 11/08/16 07:00 11/08/16 07:00 11/08/16 09:21 11/08/16 09:21 11/08/16 09:21 General appearance: Present: obese - Head Head exam: Present: atraumatic, normocephalic - Eye Eye exam: Present: PERRL, conjuntiva pink, sclera anicteric Pupils: Present: PERRL - Neck Neck exam general surgery: Present: supple, trachea midline. Absent: lymphadenopathy - Respiratory Respiratory exam: Present: CTAB. Absent: accessory muscle use, rales, rhonchi, wheezes - Cardiovascular Cardiovascular exam: Present: RRR, +S1, +S2. Absent: diastolic murmur, gallop, rubs, systolic murmur - GI/Abdominal GI/Abdominal exam: Present: normal bowel sounds, soft, no peritoneal signs. Absent: distended, tenderness - Extremities Exam Extremities exam: Present: warm, radial pulses palpable and symetrical. Absent : calf tenderness, cyanotic, pedal edema - Neurological Exam Neurological exam: Present: CN II-XII intact, oriented X3, no focal deficits. Absent: pronater drift, facial droop, speech deficit - Skin Skin exam: Present: dry, intact Internal Medicine: Result - Labs CBC & Chem 7: 11/09/16 04:55 11/09/16 04:55 Labs: BMP 11/08/16 00:25 Sodium 139 Potassium 3.6 Chloride 108 Carbon Dioxide 19 BUN 23 H Creatinine 1.31 H Glucose 449 H Calcium 7.7 L Cardiac Enzymes 11/08/16 11/08/16 Range/Units 00:25 09:42 Troponin I 0.05 H* 0.02 (0-0.03) ng/mL Liver Function 11/08/16 Range/Units 00:25 Total Bilirubin 0.4 (0.2-1.2) mg/dL AST 20 (5-34) Units/L ALT 26 (0-55) Units/L Alkaline Phosphatase 117 (38-126) Units/L Albumin 2.3 L D (3.5-5.0) g/dL - ABG Interpretation ABG results: ABG ABG pH 7.39 pH Units (7.32-7.45) 11/07/16 20:07 ABG pCO2 37 mmHg (35-45) 11/07/16 20:07 ABG pO2 66 mmHg (85-104) L 11/07/16 20:07 ABG O2 Saturation 92 % (95-98) L 11/07/16 20:07 Consult Discharge Plan - Plan [facility]errals: [facility] [Primary Care Provider] -
[2016-11-08] MEDS: Folic Acid 1 MG TABLET PO SCH (12:17)
[2016-11-08] MEDS: Cefepime HCl 1,000 MG in D5% in Water (Mini-Bag+) 100 ML IVPB SCH (20:34)
[2016-11-08] MEDS: Insulin DETEMIR 100 UNIT/ML X5UNITS SQ SCH (20:34)
[2016-11-08] MEDS ORDERED: NON-FORMULARY MEDICATION 1 EACH EACH (Insulin Glargine [Lantus] 20 UNITS) SQ SCH (21:00)
[2016-11-08] MEDS: Baclofen 10 MG TABLET PO SCH (23:29)
[2016-11-08] MEDS: traZODone 50 MG TABLET PO SCH (23:29)
[2016-11-09] MEDS: Ipratropium/Albuterol Neb 3 ML IH SCH ×4 (04:02→22:26)
[2016-11-09] MEDS: MethylPREDNISolone 40 MG/ML VIAL IVP SCH ×3 (05:35→21:31)
[2016-11-09] MEDS: *HR* Heparin 5,000 UNIT/ML VIAL SQ SCH ×2 (05:35→17:07)
[2016-11-09] MEDS: Insulin LISPRO 300 UNITS/3 ML VIAL SQ SCH ×4 (05:43→21:50)
[2016-11-09 05:51] LABS: Mean Corpuscular Hemoglobin 25.7 pg (28.0-33.3); Mean Corpuscular Volume 85.7 fL (83.0-100.0); Mean Platelet Volume 11.8 fL (9.4-12.4); Platelet Count 162 K/mcL (140-400); Red Blood Count 3.15 M/mcL (3.82-4.97); Red Cell Distribution Width 25.4 % (11.5-14.5)
[2016-11-09 05:59] LABS: Hemoglobin 8.1 g/dL (11.5-15.4)
[2016-11-09 06:09] LABS: Alanine Aminotransferase 28 Units/L (0-55); Albumin 2.2 g/dL (3.5-5.0); Albumin/Globulin Ratio 0.6 (1.1-2.2); Alkaline Phosphatase 120 Units/L (38-126); Aspartate Amino Transferase 20 Units/L (5-34); BUN/Creatinine Ratio 25 (6-26); Bilirubin,Total < 0.3 mg/dL (0.2-1.2); Blood Urea Nitrogen 22 mg/dL (7-20); Calcium 8.1 mg/dL (8.6-10.8); Carbon Dioxide 24 mEq/L (19-29); Chloride 110 mEq/L (98-109); Globulin 3.7 g/dL (2.4-3.5); Glucose 196 mg/dL (70-99); Osmolality,Calculated 303 (280-300); Potassium 3.6 mEq/L (3.5-4.5); Sodium 142 mEq/L (136-145); Total Protein 5.9 g/dL (6.0-8.3); eGFR For African Americans > 60 (> 60); eGFR For Non-African Americans > 60 (> 60)
[2016-11-09 06:21] LABS: Lymphocytes # 0.4 K/mcL (0.6-4.6); Monocytes # 0.7 K/mcL (0.0-1.3); Neutrophils # 16.8 K/mcL (1.6-8.9)
[2016-11-09 06:22] LABS: Platelet Estimate Normal (Normal)
[2016-11-09 06:23] LABS: Anisocytosis 1+ (Not Present)
[2016-11-09] MEDS: traZODone 50 MG TABLET PO SCH (08:53)
[2016-11-09] MEDS ORDERED: NON-FORMULARY MEDICATION 1 EACH EACH (Insulin Glargine [Lantus] 25 UNIT) SQ SCH (09:00)
[2016-11-09] MEDS: Pregabalin 75 MG CAPSULE PO SCH ×2 (09:25→21:32)
[2016-11-09] MEDS: Metoprolol XL (24 HR) Succ 50 MG TAB.ER.24H PO SCH (09:26)
[2016-11-09] MEDS: Isosorbide MONOnitrate (24 HR) 60 MG TAB.ER.24H PO SCH (09:26)
[2016-11-09] MEDS: Aspirin Enteric Coated 81 MG Tablet PO SCH (09:26)
[2016-11-09] MEDS: Insulin DETEMIR 100 UNIT/ML X5UNITS SQ SCH ×2 (09:26→21:52)
[2016-11-09] MEDS: Baclofen 10 MG TABLET PO SCH ×3 (09:26→21:32)
[2016-11-09] MEDS: Pantoprazole 40 MG VIAL IVP SCH (09:26)
[2016-11-09] MEDS: Venlafaxine XR (24 HR) 150 MG CAP.ER.24H PO SCH (09:26)
[2016-11-09] MEDS: Folic Acid 1 MG TABLET PO SCH (09:26)
[2016-11-09] MEDS: Tiotropium 18 MCG inhalation IH SCH (10:49)
[2016-11-09] MEDS ORDERED: Levofloxacin 750 MG/150 ML 750 MG/150 ML BAG IVPB SCH (16:00)
--- NOTE | 2016-11-09 17:15 | Internal Med Progress Note ---
Date of Encounter: 11/09/16 Time of Encounter: 17:10 - Assessment and plan (1) Sepsis Current Visit: Yes Status: Acute Qualifiers: Sepsis type: sepsis due to unspecified organism Qualified Code(s): A41.9 - Sepsis, unspecified organism (2) UTI (urinary tract infection) Current Visit: Yes Status: Acute Qualifiers: Urinary tract infection type: acute cystitis Hematuria presence: without hematuria Qualified Code(s): N30.00 - Acute cystitis without hematuria (3) Diabetes mellitus Current Visit: No Status: Chronic Qualifiers: Diabetes mellitus type: type 2 Diabetes mellitus complication status: with unspecified complications Diabetes mellitus care home insulin use: with joint terminal attack controller use Qualified Code(s): E11.8 - Type 2 diabetes mellitus with unspecified complications; Z79.4 - intermediate card tender (current) use of insulin (4) COPD exacerbation Current Visit: Yes Status: Acute (5) Hx of CABG Current Visit: No Status: Acute (6) DVT prophylaxis Current Visit: Yes Status: Acute - Subjective Interval history: Patient is 61-year-old female admitted for UTI sepsis and the blood culture shows Enterobacter and Escherichia coli while sensitivities are pending currently she is on Cefipime. Clinically she looks much better but her white count has gone up. It will be repeated tomorrow. Awaiting sensitivities. Her blood pressure is improved as well as her sensorium She also had acute kidney injury on admission which has resolved now Patient has diabetes and blood sugars are much better now continue Accu-Chek 4 times a day with sliding scale coverage. Sputum culture was sent from [facility] and so far the there are unremarkable patient has history of COPD and chronic respiratory failure with a trach collar - Constitutional Vitals: Temp Pulse Resp BP Pulse Ox 98.3 F 81 18 131/69 93 11/09/16 16:34 11/09/16 16:34 11/09/16 16:34 11/09/16 16:34 11/09/16 16:34 General appearance: Present: obese - Head Head exam: Present: atraumatic, normocephalic - Eye Eye exam: Present: PERRL, conjuntiva pink, sclera anicteric Pupils: Present: PERRL - Neck Neck exam general surgery: Present: supple, trachea midline. Absent: lymphadenopathy - Respiratory Respiratory exam: Present: CTAB. Absent: accessory muscle use, rales, rhonchi, wheezes - Cardiovascular Cardiovascular exam: Present: RRR, +S1, +S2. Absent: diastolic murmur, gallop, rubs, systolic murmur - GI/Abdominal GI/Abdominal exam: Present: normal bowel sounds, soft, no peritoneal signs. Absent: distended, tenderness - Extremities Exam Extremities exam: Present: warm, radial pulses palpable and symetrical. Absent : calf tenderness, cyanotic, pedal edema - Neurological Exam Neurological exam: Present: CN II-XII intact, oriented X3, no focal deficits. Absent: pronater drift, facial droop, speech deficit - Skin Skin exam: Present: dry, intact Internal Medicine: Result - Labs CBC & Chem 7: 11/09/16 04:55 11/09/16 04:55 Labs: Short CBC 11/09/16 Range/Units 04:55 WBC 17.9 H (4.3-11.1) K/mcL Hgb 8.1 L D (11.5-15.4) g/dL Hct 27.0 L (35.3-44.9) % Plt Count 162 (140-400) K/mcL Neutrophils # 16.8 H (1.6-8.9) K/mcL BMP 11/09/16 04:55 Sodium 142 Potassium 3.6 Chloride 110 H Carbon Dioxide 24 BUN 22 H Creatinine 0.87 Glucose 196 H Calcium 8.1 L Liver Function 11/09/16 Range/Units 04:55 Total Bilirubin < 0.3 (0.2-1.2) mg/dL AST 20 (5-34) Units/L ALT 28 (0-55) Units/L Alkaline Phosphatase 120 (38-126) Units/L Albumin 2.2 L (3.5-5.0) g/dL - ABG Interpretation ABG results: ABG ABG pH 7.39 pH Units (7.32-7.45) 11/07/16 20:07 ABG pCO2 37 mmHg (35-45) 11/07/16 20:07 ABG pO2 66 mmHg (85-104) L 11/07/16 20:07 ABG O2 Saturation 92 % (95-98) L 11/07/16 20:07 Consult Discharge Plan - Plan Referrals: [facility] [Primary Care Provider] -
[2016-11-09] MEDS ORDERED: traZODone 50 MG TABLET PO SCH (21:00)
[2016-11-09] MEDS: Cefepime HCl 1,000 MG in D5% in Water (Mini-Bag+) 100 ML IVPB SCH (21:31)
[2016-11-10] MEDS ORDERED: Melatonin 3 MG TABLET PO SCH (00:27)
[2016-11-10] MEDS: Ipratropium/Albuterol Neb 3 ML IH SCH ×2 (03:14→10:32)
[2016-11-10] MEDS: MethylPREDNISolone 40 MG/ML VIAL IVP SCH (04:51)
[2016-11-10] MEDS: *HR* Heparin 5,000 UNIT/ML VIAL SQ SCH (04:52)
[2016-11-10 05:25] LABS: Basophils % 0.1 %; Hematocrit 26.3 % (35.3-44.9); Immature Granulocytes % 0.4 % (0-4); Lymphocytes # 0.2 K/mcL (0.6-4.6); Lymphocytes % 1.9 %; Mean Corpuscular HGB Conc 30.4 g/dL (31.6-35.5); Mean Corpuscular Hemoglobin 25.9 pg (28.0-33.3); Mean Corpuscular Volume 85.1 fL (83.0-100.0); Mean Platelet Volume 11.9 fL (9.4-12.4); Monocytes # 0.2 K/mcL (0.0-1.3); Monocytes % 1.9 %; Platelet Count 180 K/mcL (140-400); Red Blood Count 3.09 M/mcL (3.82-4.97); Red Cell Distribution Width 25.5 % (11.5-14.5); Segmented Neutrophils % 95.7 %
[2016-11-10 05:30] LABS: Blood Urea Nitrogen 21 mg/dL (7-20); Carbon Dioxide 26 mEq/L (19-29); Chloride 112 mEq/L (98-109); Potassium 3.6 mEq/L (3.5-4.5); Sodium 145 mEq/L (136-145)
[2016-11-10 05:31] LABS: Alanine Aminotransferase 28 Units/L (0-55); Albumin 2.2 g/dL (3.5-5.0); Albumin/Globulin Ratio 0.6 (1.1-2.2); Alkaline Phosphatase 130 Units/L (38-126); Aspartate Amino Transferase 13 Units/L (5-34); BUN/Creatinine Ratio 26 (6-26); Bilirubin,Total < 0.3 mg/dL (0.2-1.2); Calcium 8.5 mg/dL (8.6-10.8); Globulin 3.7 g/dL (2.4-3.5); Glucose 144 mg/dL (70-99); Osmolality,Calculated 306 (280-300); Total Protein 5.9 g/dL (6.0-8.3); eGFR For African Americans > 60 (> 60); eGFR For Non-African Americans > 60 (> 60)
[2016-11-10 05:42] LABS: Neutrophils # 11.4 K/mcL (1.6-8.9)
[2016-11-10 06:06] LABS: Anisocytosis 1+ (Not Present); Hypochromasia Present (Not Present); Microcytosis Present (Not Present); Platelet Estimate Normal (Normal)
[2016-11-10 07:11] VITALS: BP 144/76
[2016-11-10] MEDS: Isosorbide MONOnitrate (24 HR) 60 MG TAB.ER.24H PO SCH (08:25)
[2016-11-10] MEDS: Venlafaxine XR (24 HR) 150 MG CAP.ER.24H PO SCH (08:25)
[2016-11-10] MEDS: Pregabalin 75 MG CAPSULE PO SCH (08:25)
[2016-11-10] MEDS: Aspirin Enteric Coated 81 MG Tablet PO SCH (08:25)
[2016-11-10] MEDS: Metoprolol XL (24 HR) Succ 50 MG TAB.ER.24H PO SCH (08:26)
[2016-11-10] MEDS: Pantoprazole 40 MG VIAL IVP SCH (08:26)
[2016-11-10] MEDS: Baclofen 10 MG TABLET PO SCH (08:26)
[2016-11-10] MEDS: Folic Acid 1 MG TABLET PO SCH (08:26)
[2016-11-10] MEDS: Insulin LISPRO 300 UNITS/3 ML VIAL SQ SCH (08:27)
[2016-11-10] MEDS: Insulin DETEMIR 100 UNIT/ML X5UNITS SQ SCH (08:30)
--- NOTE | 2016-11-10 10:09 | Discharge Summary ---
Date of Encounter: 11/10/16 Time of Encounter: 10:07 - Discharge Diagnosis (1) Sepsis Priority: Primary Status: Acute Qualifiers: Sepsis type: sepsis due to unspecified organism Qualified Code(s): A41.9 - Sepsis, unspecified organism (2) UTI (urinary tract infection) Priority: Primary Status: Acute Qualifiers: Urinary tract infection type: acute cystitis Hematuria presence: without hematuria Qualified Code(s): N30.00 - Acute cystitis without hematuria (3) Diabetes mellitus Priority: Secondary Status: Chronic Qualifiers: Diabetes mellitus type: type 2 Diabetes mellitus complication status: with unspecified complications Diabetes mellitus fci insulin use: with intermediate teacher use Qualified Code(s): E11.8 - Type 2 diabetes mellitus with unspecified complications; Z79.4 - middle or intermediate school principal (current) use of insulin (4) COPD exacerbation Priority: Secondary Status: Acute (5) Hx of CABG Priority: Secondary Status: Acute (6) DVT prophylaxis Priority: Secondary Status: Acute - Discharge Medications Prescriptions: Ciprofloxacin HCl 750 mg PO DAILY #8 tablet predniSONE [PredniSONE] 10 mg PO DAILY #30 tablet Home Medications: Albuterol Neb [Proventil Neb] 2.5 mg IH QID PRN 03/13/16 [History] Albuterol Sulfate [Albuterol Inhaler] 2 puff IH Q4H PRN 03/13/16 [History] Dextrose [Glucose] 16 gm PO PRN PRN 03/13/16 [History] Insulin ASPART [Novolog Flexpen] 12 unit SQ BIDWM MDD Breakfast & Lunch [History] Insulin ASPART [Novolog Flexpen] 18 unit SQ QPM MDD Dinner 03/13/16 [History] Insulin Glargine [Lantus] 25 unit SQ DAILY 03/13/16 [History] Isosorbide MONOnitrate (24 HR) [Imdur] 60 mg PO DAILY 03/13/16 [History] Metformin HCl [Glucophage] 1,000 mg PO BID 03/13/16 [History] Metoprolol XL (24 HR) Succ [Toprol Xl] 125 mg PO DAILY 03/13/16 [History] Nitroglycerin [Nitrostat] 0.4 mg SL Q5M PRN 03/13/16 [History] Omeprazole [PriLOSEC] 20 mg PO DAILY 03/13/16 [History] Propylene Glycol/Peg 400 [Systane 0.3-0.4% Eye Drops] 1 drop BOTH EYES QID 03/13 [History] Triamcinolone Acet 0.1% CRM [Kenalog] 1 appl TP BID PRN 03/13/16 [History] Trospium Chloride 20 mg PO DAILY 03/13/16 [History] Aspirin [Lo-Dose Aspirin EC] 81 mg PO DAILY 03/14/16 [History] Baclofen [Lioresal] 10 mg PO TID 03/14/16 [History] Folic Acid 1 mg PO DAILY 03/14/16 [History] Furosemide [Lasix] 40 mg PO DAILY PRN 03/14/16 [History] HYDROcodone/Acet 5/325 mg [[place] 5-325 mg] 1 tab PO Q8HR PRN #20 tablet [Rx] Pregabalin [Lyrica] 300 mg PO BID 03/14/16 [History] Quetiapine Fumarate [Seroquel] 200 mg PO HS 03/14/16 [History] Tiotropium [Spiriva] 1 cap IH DAILY 03/14/16 [History] Trazodone HCl 200 mg PO HS 03/14/16 [History] Venlafaxine HCl [Venlafaxine HCl ER] 150 mg PO DAILY 03/14/16 [History] Budesonide/Formoterol 160/4.5 [Symbicort 160/4.5] 2 puff IH BIDR 11/07/16 [ History] Cyanocobalamin (Vitamin B-12) [Vitamin B12] 1,000 mcg PO DAILY 11/07/16 [History ] Saxagliptin HCl [Onglyza] 5 mg PO DAILY 11/07/16 [History] Insulin Glargine [Lantus] 20 units SQ HS 11/08/16 [History] Buspirone HCl [Buspar] 30 mg PO TID 11/09/16 [History] Ciprofloxacin HCl 750 mg PO DAILY #8 tablet 11/10/16 [Rx] predniSONE [PredniSONE] 10 mg PO DAILY #30 tablet 11/10/16 [Rx] Allergies/Adverse Reactions: Allergies NSAIDS (Non-Steroidal Anti-Inflamma Allergy (Unknown, Verified 11/07/16 22:47) See Comments Reaction unknown atorvastatin Adverse Reaction (Verified 03/13/16 16:57) See Comments "legs go weak" gemfibrozil Adverse Reaction (Verified 03/13/16 16:57) See Comments "legs go weak" Sulfa (Sulfonamide Antibiotics) Adverse Reaction (Verified 03/13/16 16:57) Vomiting Date of admission: 11/07/16 18:56 Primary care physician: PCP SANDRA Discharging clinician: Cora Chatterjee Anticipated date of discharge: 11/10/16 - Patient Status Disposition: Home, Self-Care Condition: Good Overall status at discharge: patient is progressing back to baseline - Discharge Instructions [facility] Provider[facility] - 11/17/16 10:30 am - Diet and Activity Activity: resume usual activities as tolerated Diet: advance to your usual diet Hospital course: Patient is 61-year-old female admitted for UTI sepsis and the blood culture shows Enterobacter and Escherichia coli . Escherichia coli sensitive to Levaquin. White count has improved. Her blood pressure is improved as well as her sensorium. She also had acute kidney injury on admission which has resolved now Patient has diabetes and blood sugars are much better now .Sputum culture was sent from [facility] and so far the there are unremarkable patient has history of COPD and chronic respiratory failure with a trach collar - Time Spent with Patient Total time spent providing and/or coordinating discharge services: Greater than 30 minutes - Constitutional Vitals: Temp Pulse Resp BP Pulse Ox 98.1 F 71 16 144/76 94 11/10/16 07:06 11/10/16 07:06 11/10/16 07:06 11/10/16 07:06 11/10/16 08:43 General appearance: Present: obese - Head Head exam: Present: atraumatic, normocephalic - Eye Eye exam: Present: PERRL, conjuntiva pink, sclera anicteric Pupils: Present: PERRL - Neck Neck exam general surgery: Present: supple, trachea midline. Absent: lymphadenopathy - Respiratory Respiratory exam: Present: CTAB. Absent: accessory muscle use, rales, rhonchi, wheezes - Cardiovascular Cardiovascular exam: Present: RRR, +S1, +S2. Absent: diastolic murmur, gallop, rubs, systolic murmur - GI/Abdominal GI/Abdominal exam: Present: normal bowel sounds, soft, no peritoneal signs. Absent: distended, tenderness - Extremities Exam Extremities exam: Present: warm, radial pulses palpable and symetrical. Absent : calf tenderness, cyanotic, pedal edema - Neurological Exam Neurological exam: Present: CN II-XII intact, oriented X3, no focal deficits. Absent: pronater drift, facial droop, speech deficit - Skin Skin exam: Present: dry, intact
[2016-11-10] MEDS: Tiotropium 18 MCG inhalation IH SCH (10:32)
[2016-11-10] MEDS ORDERED: Aminoglycoside Consult 1 EACH MC ONE (12:19)
--- NOTE | 2016-11-10 15:15 | Electrocardiograph Report ---
[place] [id number] Test Date: 2016-11-07 Pat Name: Ion Sood Department: 104 Room: [id number] Gender: F [employer] Pump Operator: EKP : 1955 Requested By: Reshma Wiggins Order Number: [id number] Reading MD: Janny Chan Measurements Intervals [place] Rate: 99 P: 39 MN: 187 QRS: -24 QRSD: 90 T: 37 QT: 312 QTc: 368 Interpretive Statements SINUS RHYTHM BORDERLINE LEFT AXIS DEVIATION Electronically Signed On 11-09-2016 22:13:20 EDT by Janny Chan
== END 2016-11-10 12:20 | disposition home or self-care (01) | DRG 871 ==
LOC: EMEROO 16:10 → 2NENU 16:10
PROVIDERS: ADMIT Internal Medicine; ATTEND Internal Medicine

== ENCOUNTER 2020-07-19 14:47 | Observation (INO) ==
[2020-07-19] MEDS ORDERED: Naloxone 0.4 MG/ML INJ IVP PRN (16:52)
[2020-07-19] MEDS ORDERED: Dextrose Gel 15 GM/37.5 ML TUBE PO PRN ×2 (16:56)
[2020-07-19] MEDS ORDERED: *HR* Dextrose 50 % in Water (Vial) 50 ML VIAL IVP PRN (16:56)
[2020-07-19] MEDS ORDERED: D5% in Water 1,000 ML IVC PRN (16:56)
[2020-07-19 17:52] LABS: Hemoglobin 7.9 g/dL (11.5-15.4); Red Cell Distribution Width 19.3 % (11.5-14.5); White Blood Count 10.7 K/mcL (4.3-11.1)
[2020-07-19 17:54] LABS: Basophils % 0.2 %; Eosinophils # 0.1 K/mcL (0.0-0.6); Eosinophils % 0.5 %; Hematocrit 28.6 % (35.3-44.9); Immature Granulocytes % 1.3 % (0-4); Lymphocytes # 0.5 K/mcL (0.6-4.6); Lymphocytes % 4.6 %; Mean Corpuscular HGB Conc 27.6 g/dL (31.6-35.5); Mean Corpuscular Hemoglobin 26.8 pg (28.0-33.3); Mean Corpuscular Volume 96.9 fL (83.0-100.0); Mean Platelet Volume 11.1 fL (9.4-12.4); Monocytes # 0.5 K/mcL (0.0-1.3); Monocytes % 4.4 %; Neutrophils # 9.5 K/mcL (1.6-8.9); Nucleated Red Blood Cells 0.3 /100 WBC (0); Platelet Count 333 K/mcL (140-400); Red Blood Count 2.95 M/mcL (3.82-4.97)
[2020-07-19] MEDS ORDERED: Perflutren Lipid Microsphere 1.3 ML in 0.9 % Sodium Chloride 8.7 ML IVP PRN (18:09)
[2020-07-19 18:17] LABS: Albumin/Globulin Ratio 1.5 (1.1-2.2); Bilirubin,Total 0.2 mg/dL (0.3-1.0); Calcium 8.9 mg/dL (8.6-10.3); Globulin 2.6 g/dL (2.4-3.5); Potassium 4.5 mEq/L (3.5-5.1); Total Protein 6.6 g/dL (6.4-8.9); Troponin I 0.03 ng/mL (< 0.04)
[2020-07-19 18:48] LABS: Anisocytosis 1+ (Not Present)
[2020-07-19 18:49] LABS: Platelet Estimate Normal (Normal); Poikilocytosis 2+ (Not Present); Toxic Granulation Present (Not Present)
[2020-07-19] MEDS: Furosemide 40 MG/4 ML VIAL IVP SCH (18:49)
[2020-07-19] MEDS: Insulin LISPRO 300 UNITS/3 ML VIAL SUBQ SCH (20:28)
[2020-07-19] MEDS: *HR* Heparin 5,000 UNIT/ML VIAL SQ SCH (20:28)
[2020-07-19] MEDS ORDERED: *HR* Metoprolol 5 MG/5 ML VIAL IVP PRN (21:07)
[2020-07-19] MEDS ORDERED: Insulin Human Regular 5 UNIT in 0.9 % Sodium Chloride 10 ML IV ONE (21:09)
[2020-07-19] MEDS ORDERED: Melatonin 3 MG TABLET PO SCH (23:45)
[2020-07-20] MEDS: Baclofen 10 MG TABLET PO PRN ×2 (00:15→10:12)
[2020-07-20] MEDS: Melatonin 3 MG TABLET PO SCH ×3 (00:37→20:05)
[2020-07-20] MEDS: *HR* HYDROcodone/Acet 5/325 mg TABLET PO PRN ×2 (00:37→10:12)
[2020-07-20] MEDS: *HR* Heparin 5,000 UNIT/ML VIAL SQ SCH ×3 (06:41→20:05)
[2020-07-20] MEDS ORDERED: Nitroglycerin 0.4 MG TAB.SUBL SL PRN (06:54)
[2020-07-20] MEDS ORDERED: Fluticasone Propionate Nasal 50 MCG/SPRAY BOTTLE NS PRN (06:54)
[2020-07-20] MEDS ORDERED: GuaiFENesin Liq 200 MG/10 ML UDC PO PRN (07:20)
[2020-07-20] MEDS: Isosorbide MONOnitrate (24 HR) 30 MG TAB.ER.24H PO SCH (07:49)
[2020-07-20] MEDS: Folic Acid 1 MG TABLET PO SCH (07:49)
[2020-07-20] MEDS: Metoprolol XL (24 HR) Succ 50 MG TAB.ER.24H PO SCH (07:49)
[2020-07-20] MEDS: allopurinoL 100 MG TABLET PO SCH (07:49)
[2020-07-20] MEDS: metOLazone 5 MG TABLET PO SCH (07:49)
[2020-07-20] MEDS: Pregabalin 75 MG CAPSULE PO SCH ×2 (07:49→20:06)
[2020-07-20] MEDS: Furosemide 40 MG/4 ML VIAL IVP SCH (07:49)
[2020-07-20] MEDS: predniSONE 10 MG TABLET PO SCH (07:49)
[2020-07-20] MEDS: Venlafaxine XR (24 HR) 150 MG CAP.ER.24H PO SCH (07:49)
[2020-07-20] MEDS: Aspirin Enteric Coated 81 MG Tablet PO SCH (07:49)
[2020-07-20] MEDS: Artificial Tears SOLN 15 ML BOTTLE BOTH EYES SCH ×3 (07:50→20:05)
[2020-07-20] MEDS: Insulin LISPRO 300 UNITS/3 ML VIAL SUBQ SCH ×4 (07:50→20:05)
[2020-07-20] MEDS ORDERED: Tiotropium 10 INH DOSE IH ONE (07:56)
[2020-07-20] MEDS: Tiotropium 10 INH DOSE IH SCH (08:00)
[2020-07-20] MEDS: Budesonide/Formoterol 160/4.5 1 PUFF INH IH SCH ×2 (08:00→20:46)
[2020-07-20] MEDS: Loratadine 10 MG TABLET PO SCH (09:56)
[2020-07-20] MEDS ORDERED: 0.9 % Sodium Chloride 250 ML ONE (10:00)
[2020-07-20] MEDS: Insulin DETEMIR 100 UNIT/ML X5UNITS SUBQ SCH (20:05)
[2020-07-20] MEDS: Mirtazapine 15 MG TABLET PO SCH (20:05)
[2020-07-20] MEDS: traZODone 50 MG TABLET PO SCH (20:05)
[2020-07-21] MEDS: *HR* Heparin 5,000 UNIT/ML VIAL SQ SCH ×3 (03:54→20:33)
[2020-07-21] MEDS: Metoprolol XL (24 HR) Succ 50 MG TAB.ER.24H PO SCH (07:52)
[2020-07-21] MEDS: Folic Acid 1 MG TABLET PO SCH (07:52)
[2020-07-21] MEDS: metOLazone 5 MG TABLET PO SCH (07:52)
[2020-07-21] MEDS: predniSONE 10 MG TABLET PO SCH (07:53)
[2020-07-21] MEDS: Furosemide 40 MG/4 ML VIAL IVP SCH (07:53)
[2020-07-21] MEDS: allopurinoL 100 MG TABLET PO SCH (07:53)
[2020-07-21] MEDS: Isosorbide MONOnitrate (24 HR) 30 MG TAB.ER.24H PO SCH (07:53)
[2020-07-21] MEDS: Pregabalin 75 MG CAPSULE PO SCH ×2 (07:53→20:30)
[2020-07-21] MEDS: Aspirin Enteric Coated 81 MG Tablet PO SCH (07:53)
[2020-07-21] MEDS: Venlafaxine XR (24 HR) 150 MG CAP.ER.24H PO SCH (07:53)
[2020-07-21] MEDS: Loratadine 10 MG TABLET PO SCH (07:53)
[2020-07-21] MEDS: Insulin LISPRO 300 UNITS/3 ML VIAL SUBQ SCH ×3 (07:54→17:50)
[2020-07-21] MEDS: Budesonide/Formoterol 160/4.5 1 PUFF INH IH SCH ×2 (07:54→20:41)
[2020-07-21] MEDS: Artificial Tears SOLN 15 ML BOTTLE BOTH EYES SCH ×3 (07:54→20:44)
[2020-07-21] MEDS: Tiotropium 10 INH DOSE IH SCH (07:54)
[2020-07-21] MEDS ORDERED: Insulin LISPRO 300 UNITS/3 ML VIAL SUBQ SCH (09:51)
[2020-07-21 10:33] LABS: Basophils % 0.2 %; Eosinophils # 0.2 K/mcL (0.0-0.6); Eosinophils % 1.7 %; Hematocrit 33.5 % (35.3-44.9); Hemoglobin 9.3 g/dL (11.5-15.4); Immature Granulocytes % 0.9 % (0-4); Lymphocytes # 0.7 K/mcL (0.6-4.6); Mean Corpuscular HGB Conc 27.8 g/dL (31.6-35.5); Mean Corpuscular Volume 97.1 fL (83.0-100.0); Mean Platelet Volume 10.9 fL (9.4-12.4); Monocytes # 0.5 K/mcL (0.0-1.3); Monocytes % 4.9 %; Neutrophils # 7.8 K/mcL (1.6-8.9); Platelet Count 350 K/mcL (140-400); Red Blood Count 3.45 M/mcL (3.82-4.97); Red Cell Distribution Width 20.9 % (11.5-14.5); Segmented Neutrophils % 84.3 %; White Blood Count 9.3 K/mcL (4.3-11.1)
[2020-07-21 10:55] LABS: Calcium 9.1 mg/dL (8.6-10.3); Potassium 3.9 mEq/L (3.5-5.1)
[2020-07-21 11:02] LABS: Anisocytosis 1+ (Not Present); Platelet Estimate Normal (Normal)
[2020-07-21] MEDS: Baclofen 10 MG TABLET PO PRN (14:11)
[2020-07-21] MEDS: *HR* HYDROcodone/Acet 5/325 mg TABLET PO PRN (14:11)
[2020-07-21] MEDS: Melatonin 3 MG TABLET PO SCH (20:30)
[2020-07-21] MEDS: traZODone 50 MG TABLET PO SCH (20:30)
[2020-07-21] MEDS: Mirtazapine 15 MG TABLET PO SCH (20:30)
[2020-07-21] MEDS: Insulin DETEMIR 100 UNIT/ML X5UNITS SUBQ SCH (20:42)
[2020-07-22 04:31] LABS: Mean Corpuscular HGB Conc 27.7 g/dL (31.6-35.5); Red Blood Count 3.43 M/mcL (3.82-4.97)
[2020-07-22 04:32] LABS: Basophils % 0.1 %; Eosinophils # 0.2 K/mcL (0.0-0.6); Eosinophils % 2.6 %; Hematocrit 33.2 % (35.3-44.9); Hemoglobin 9.2 g/dL (11.5-15.4); Immature Granulocytes % 0.9 % (0-4); Lymphocytes # 0.9 K/mcL (0.6-4.6); Lymphocytes % 11.1 %; Mean Corpuscular Hemoglobin 26.8 pg (28.0-33.3); Mean Corpuscular Volume 96.8 fL (83.0-100.0); Mean Platelet Volume 10.6 fL (9.4-12.4); Monocytes # 0.5 K/mcL (0.0-1.3); Monocytes % 6.7 %; Neutrophils # 6.3 K/mcL (1.6-8.9); Platelet Count 328 K/mcL (140-400); Red Cell Distribution Width 20.1 % (11.5-14.5); Segmented Neutrophils % 78.6 %
[2020-07-22 04:50] LABS: Calcium 9.2 mg/dL (8.6-10.3); Potassium 3.9 mEq/L (3.5-5.1)
[2020-07-22 05:06] LABS: Anisocytosis 1+ (Not Present); Hypochromasia Present (Not Present); Platelet Estimate Normal (Normal); Polychromasia 1+ (Not Present)
[2020-07-22] MEDS: *HR* Heparin 5,000 UNIT/ML VIAL SQ SCH (05:20)
[2020-07-22 06:26] VITALS: BP 181/73
[2020-07-22] MEDS: Tiotropium 10 INH DOSE IH SCH (08:03)
[2020-07-22] MEDS: Budesonide/Formoterol 160/4.5 1 PUFF INH IH SCH (08:03)
[2020-07-22] MEDS: Loratadine 10 MG TABLET PO SCH (08:40)
[2020-07-22] MEDS: Pregabalin 75 MG CAPSULE PO SCH (08:40)
[2020-07-22] MEDS: Aspirin Enteric Coated 81 MG Tablet PO SCH (08:40)
[2020-07-22] MEDS: Folic Acid 1 MG TABLET PO SCH (08:40)
[2020-07-22] MEDS: Venlafaxine XR (24 HR) 150 MG CAP.ER.24H PO SCH (08:41)
[2020-07-22] MEDS: Isosorbide MONOnitrate (24 HR) 30 MG TAB.ER.24H PO SCH (08:41)
[2020-07-22] MEDS: allopurinoL 100 MG TABLET PO SCH (08:41)
[2020-07-22] MEDS: Furosemide 40 MG/4 ML VIAL IVP SCH (08:41)
[2020-07-22] MEDS: metOLazone 5 MG TABLET PO SCH (08:41)
[2020-07-22] MEDS: Metoprolol XL (24 HR) Succ 50 MG TAB.ER.24H PO SCH (08:41)
[2020-07-22] MEDS: predniSONE 10 MG TABLET PO SCH (08:41)
[2020-07-22] MEDS: Insulin LISPRO 300 UNITS/3 ML VIAL SUBQ SCH (08:42)
[2020-07-22] MEDS: Artificial Tears SOLN 15 ML BOTTLE BOTH EYES SCH (08:47)
== END 2020-07-22 12:00 | disposition home health service (06) ==
LOC: 2ANU
PROVIDERS: ADMIT Internal Medicine; ATTEND Internal Medicine